=== PATIENT | female | born 1990 | race Caucasian/White ===

== ENCOUNTER 2020-06-19 07:18 | Inpatient (IN) ==
[2020-06-19] MEDS ORDERED: LACTATED RINGER'S 1,000 ML IV SCH (08:30)
[2020-06-19 09:03] LABS: Hematocrit (blood only) 30.2 % (37-47); Hemoglobin 9.7 g/dL (12.0-16.0); Mean Corpuscular Hemoglobin 23.8 pg (25-34); Mean Corpuscular Hgb Conc 32.1 g/dL (32-36); Mean Corpuscular Volume 74.2 fL (80-100); Mean Platelet Volume 11.7 fL (7.4-10.4); Nucleated RBC # (auto) 0.05 K/uL (0-0); Nucleated RBC % (auto) 0.3 %; Platelet Count 177 K/uL (130-400); RDW Coefficient of Variation 15.4 % (11.5-14.5); RDW Standard Deviation 41.9 fL (36.4-46.3); Red Blood Count 4.07 M/uL (4.2-5.4); White Blood Count 15.78 K/uL (4.8-10.8)
[2020-06-19] MEDS ORDERED: CITRIC ACID/SODIUM CITRATE 15 ML UDC ONE (09:23)
--- NOTE | 2020-06-19 09:29 | History & Physical Bridge Note ---
Date of Service June 19, 2020 History & Physical Bridge Note I have examined the patient, reviewed the History & Physical and in the interval since the performance of the History & Physical I have noted the following changes of clinical significance: no changes noted
--- NOTE | 2020-06-19 09:34 | Anesthesiology Consultation ---
Date of Service June 19, 2020 Assessment & Plan (1) Encounter for pre-operative examination: Chart Review Chart Review: Acceptable Risk for Surgery History Surgery Operation Date: 06/19/20 10:00 Proposed Procedures p Section in LD(Bilateral) - Morro Oseguera MD Height/Weight Height: 5 ft 3 in Weight: 102.058 kg Allergies Allergy/AdvReac Type Severity Reaction Status Date / Time BEE STINGS Allergy Severe THROAT Uncoded 06/17/20 02:34 SWELLS, HIVES, HX HOSPITALIZED FOR - HAS EPI PEN Medications Home Medications Medication Instructions Recorded Confirmed Last Taken [id number] fumarate-FA 1 tab PO QAM 05/23/20 06/19/20 06/18/20 [] ferrous sulfate [iron] 325 mg PO QAM 05/23/20 06/19/20 1 Day Ago ~06/18/20 dexamethasone 4 mg PO DAILY 06/16/20 06/19/20 1 Day Ago ~06/18/20 NPO Date Last Intake of Fluids: 06/19/20 Time Last Intake of Fluids: 06:00 Date Last Intake of Solids: 06/18/20 Time Last Intake of Solids: 18:30 Past Medical History Medical History Chronic idiopathic thrombocytopenia Patient finished 4 day treatment with Dexamethasone yesterday d/t Chronic thrombocytopenia History of anesthesia reaction TOOK A LITTLE WHILE TO WAKE UP FROM WISDOM TEETH Right ovarian cyst HX Temporary low platelet count PT REPORTS LOW PLATELETS - HEMATOLOGY VISIT - May - LORETO TELLES/DR CANNON Past Family History Family History Daughter Family history of diabetes mellitus Father Family history of diabetes mellitus Brother Family history of diabetes mellitus Grandfather (Maternal) Family history of diabetes mellitus Grandfather (Paternal) Family history of diabetes mellitus Past Surgical History Surgical History History of section X2 Lutz teeth removed HX Social History Smoking Status: Never smoker Hx Alcohol Use: No Hx Substance Use: No substance use type: does not use Physical Exam Vital Signs Last Vital Signs Temp 36.9 C 06/19/20 09:11 Pulse 64 06/19/20 09:11 Resp 20 06/19/20 09:11 BP 119/63 04/25/21 09:11 Testing Laboratory Results 06/19/20 08:[address] am told by Dr Oseguera that she had a COVID test that was negative yesterday at the OB office but I can't see the results on our system.
[2020-06-19] MEDS ORDERED: MoRPHine SULFATE PF 1 MG/ML 10 ML AMP/VIAL ONE (09:39)
--- NOTE | 2020-06-19 09:49 | Obstetrical Progress Note ---
Date of Service June 19, 2020 Subjective Admit Note 29 F P2012 at 39.2 weeks admitted with onset of contractions this morning and bloody show. Contractions getting stronger since she arrived and coming every 4-5 minutes. She has ITP and just completed a course of steroids. She was originally scheduled for a repeat and bilateral tubal ligation this Sat. and now is in labor. We will proceed with surgery now due to being in labor. Consents signed and patient in agreement with plan to proceed. Results & Data ([facility]) Vital Signs (Past 12 Hours) Vital Signs Temp Pulse Resp BP 06/19/20 09:11 36.9 C 64 20 119/63 06/19/20 07:30 37 C 67 20 118/55 L 06/19/20 07:26 67 118/55 L 06/19/20 07:22 37.0 C 18
[2020-06-19] MEDS ORDERED: ONDANSETRON INJ 2 MG/ML 2 ML VIAL ONE (10:13)
[2020-06-19] MEDS ORDERED: PROPOFOL IV EMULSION 10 MG/ML 20 ML VIAL IV ONE (10:13)
[2020-06-19] MEDS ORDERED: OXYTOCIN 10 UNITS/ML VIAL ONE ×2 (10:13→10:44)
--- NOTE | 2020-06-19 11:24 | Post Operative Brief Note ---
Immediate Post Op Note v1 Date of Surgery June 19, 2020 Pre & Post Diagnosis Operation Date: 06/19/20 10:00 Pre-Op Diagnosis: Repeat Caesarean Section in labor; ITP; Voluntary sterilization Post-Op Diagnosis: Same; delivery of a live baby boy at 1042 ( main OR 3) I identified the patient and participated in the time-out.: Yes Procedure Repeat Section bilateral tubal ligation with Filshie clips Operation Date: 06/19/20 10:00 <No data on this case meets the specified criteria> Surgeon Morro Oseguera MD Agent Based Modeler Dr. Saucedo Estimated Blood Loss 500 Findings Consistent with Post-Op Diagnosis Drains Jameson Catheter
[2020-06-19] MEDS ORDERED: NALOXONE HCL 0.4 MG/1 ML VIAL/CARP IV PRN (11:40)
[2020-06-19] MEDS ORDERED: MoRPHine SULFATE PF 1 MG/ML 10 ML AMP/VIAL INT SPINAL ONE (11:40)
[2020-06-19] MEDS ORDERED: MEPERIDINE HCL 25 MG/ML CARP/VIAL IV PRN (11:40)
[2020-06-19] MEDS ORDERED: ePHEDrine sulfate 50 MG/ML AMP IV PRN (11:40)
[2020-06-19] MEDS ORDERED: NALOXONE HCL 0.08 MG in SYRINGE 1.8 ML IV PRN (11:40)
[2020-06-19] MEDS ORDERED: ONDANSETRON INJ 2 MG/ML 2 ML VIAL IV PRN ×2 (11:40→12:50)
[2020-06-19] MEDS ORDERED: LACTATED RINGER'S 500 ML IV PRN (11:40)
[2020-06-19] MEDS ORDERED: PROMETHAZINE HCL 12.5 MG in SODIUM CHLORIDE 0.9% 50 ML IV PRN (11:40)
[2020-06-19] MEDS ORDERED: diphenhydrAMINE 50 MG/ML VIAL IV PRN (11:40)
[2020-06-19] MEDS ORDERED: NALOXONE HCL 1 MG in SODIUM CHLORIDE 0.9% 1000ML 1,000 ML IV PRN (11:40)
[2020-06-19] MEDS ORDERED: NO NARCOTICS OR SEDATIVES SCH (11:45)
[2020-06-19] MEDS ORDERED: SODIUM CHLORIDE 0.9% 1000ML 1,000 ML IV SCH (11:45)
[2020-06-19] MEDS ORDERED: DC INTRASPINAL MORPHINE SCH (11:45)
--- NOTE | 2020-06-19 12:23 | Anesthesiology Progress Note ---
Date of Service June 19, 2020 Anesthesia Post Procedure Vital Signs Vital Signs: Temp Pulse Resp BP Pulse Ox 06/19/20 12:20 69 100 06/19/20 12:17 68 94 06/19/20 12:15 61 106/56 L 100 06/19/20 12:10 71 93 06/19/20 12:05 66 18 109/58 L 100 06/19/20 12:00 65 100 06/19/20 11:55 62 16 109/62 100 06/19/20 11:50 61 100 06/19/20 11:45 63 20 107/58 L 100 06/19/20 11:40 59 L 100 06/19/20 11:35 36.5 C 63 18 100 06/19/20 11:34 56 L 104/53 L 06/19/20 10:05 80 125/71 06/19/20 09:11 36.9 C 64 20 119/63 06/19/20 07:30 37 C 67 20 118/55 L 06/19/20 07:26 67 118/55 L 06/19/20 07:22 37.0 C 18 Transfer of Care Handoff Completed per policy Notes Mental Status: alert / awake / arousable Patient Amnestic to Procedure: Yes Nausea / Vomiting: adequately controlled Pain: adequately controlled Airway Patency, RR, SpO2: stable & adequate BP & HR: stable & adequate Hydration State: stable & adequate Neuraxial Anesthesia: was administered and sensory block is resolving Anesthetic Complications: no major complications apparent
[2020-06-19] MEDS: KETOROLAC 30 MG/ML VIAL IV PRN (12:26)
[2020-06-19] MEDS ORDERED: MAGNESIUM HYDROXIDE SUSP 30 ML UDC PO PRN (12:50)
[2020-06-19] MEDS ORDERED: BENZOCAINE 20% AER SPR 82.5 GM CAN EXT PRN (12:50)
[2020-06-19] MEDS ORDERED: IBUPROFEN 600 MG TAB PO PRN (12:50)
[2020-06-19] MEDS ORDERED: PROMETHAZINE HCL 25 MG in SODIUM CHLORIDE 0.9% 50 ML IV PRN (12:50)
[2020-06-19] MEDS ORDERED: SENNA 8.6 MG TAB PO PRN (12:50)
[2020-06-19] MEDS ORDERED: HYDROCORTISONE ACETATE 25 MG SUPP PR PRN (12:50)
[2020-06-19] MEDS ORDERED: SUPERCREAM 0.870% 15 GM JAR EXT PRN (12:50)
[2020-06-19] MEDS ORDERED: DIPHTHERIA/TETANUS/PERTUSSIS 0.5 ML SYR/VIAL IM ONE (12:50)
[2020-06-19] MEDS ORDERED: OXYTOCIN 30 UNITS/500ML NSS ONE (13:28)
[2020-06-19] MEDS ORDERED: OXYTOCIN 30 UNITS in LACTATED RINGER'S 1,000 ML IV SCH (13:30)
[2020-06-19] MEDS ORDERED: METHYLERGONOVINE MALEATE 0.2 MG/ML AMP ONE (13:35)
[2020-06-19] MEDS ORDERED: METHYLERGONOVINE MALEATE 0.2 MG/ML AMP IM STA (13:55)
[2020-06-19] MEDS ORDERED: CARBOPROST TROMETHAMINE 250 MCG/ML AMPUL IM ONE (13:59)
[2020-06-19] MEDS ORDERED: SODIUM CHLORIDE 0.9% 250 ML IV PRN (14:06)
[2020-06-19 14:36] LABS: Hematocrit (blood only) 26.8 % (37-47); Hemoglobin 8.7 g/dL (12.0-16.0); Mean Platelet Volume 12.1 fL (7.4-10.4); Platelet Count 187 K/uL (130-400); RDW Coefficient of Variation 15.4 % (11.5-14.5); RDW Standard Deviation 41.8 fL (36.4-46.3); Red Blood Count 3.62 M/uL (4.2-5.4); White Blood Count 21.39 K/uL (4.8-10.8)
[2020-06-19 14:41] LABS: Mean Corpuscular Hgb Conc 32.5 g/dL (32-36)
[2020-06-19] MEDS: LACTATED RINGER'S 1,000 ML IV SCH (14:58)
--- NOTE | 2020-06-19 15:44 | Operative Report (OR) ---
DATE OF OPERATION: 06/19/2020 PREOPERATIVE DIAGNOSES: Term elective repeat section, voluntary sterilization procedure and idiopathic thrombocytopenic purpura. POSTOPERATIVE DIAGNOSES: Term elective repeat section, voluntary sterilization procedure and idiopathic thrombocytopenic purpura. PROCEDURE: Repeat section, low segment transverse and bilateral tubal ligation with Filshie clips. SURGEON: Morro Oseguera MD. LOAD OUT PERSON: Dr. Saucedo. ANESTHESIA: Spinal. COMPLICATIONS: None. FINDINGS: A live male, Apgars 9 and 9, weight pending. TOTAL FLUIDS: 2400 mL. TOTAL BLOOD LOSS: 500 mL. TOTAL URINE OUTPUT: 100 mL. CLINICAL HISTORY: The patient is a 29-year-old female, para 2-0-1-2, at 39 weeks and 2 days, who was admitted due to having contractions starting this morning with a bloody show. She was paul every 4-5 minutes. The patient has ITP, had just completed a course of steroids for her low platelet count, was due to have IV immunoglobulin started tomorrow. The patient was in labor, so decision was made to proceed with a . A timeout was called prior to the start of the procedure and Ancef 3 grams were given preop. DESCRIPTION OF PROCEDURE: Under satisfactory spinal anesthesia, the patient was prepped and draped in usual sterile fashion. A low Pfannenstiel incision through a prior scar was then made entering into the abdominal cavity in successive layers without difficulty. Upon entering into the peritoneal cavity, pickups with teeth and Metzenbaums were used to create a bladder flap. This was gently dissected down. A low segment transverse incision over the lower uterine segment was made. The incision was widened in the AP diameter and the amniotic sac was nicked and found to have light meconium. The was then delivered from the vertex presentation. The lie was occiput transverse. Delivery was accomplished with the aid of fundal pressure. The cord was doubly clamped and cut. Baby was handed to the forest manager present for delivery. Apgars were 9 and 9, weight pending. Cord blood was then obtained. Placenta delivered spontaneously and intact. The uterus was then exteriorized. Ring forceps were then used to clamp both the margins anteriorly and the lower uterine segment. Another ring was used to dilate the cervix. Uterus was firm and was cleaned with a dry lap of all clots and debris. Uterus, tubes, ovaries were within normal limits without any evidence of pathology. Uterus was closed with a double layer closure with 0 Vicryl suture in a continuous interlocking fashion followed by another imbricating layer. The initial sponge, needle, and instrument count were found to be correct. The lower uterine segment was inspected and no active bleeding was noted. Both tubes were identified and they were serially grasped with Filshie clips and 2 were applied to each tube. The uterus was then placed back into the normal anatomical position. The lower uterine segment was inspected, no active bleeding. The contents of the pelvic and abdominal cavity were then irrigated to clear. fascia was then reapproximated from both ends using 0 Vicryl suture in a continuous fashion. Subcuticular space was then irrigated. The subcuticular layer was then closed with 3-0 plain suture. The skin was then reapproximated with 4-0 Monocryl suture and then the incision site was then closed with quarter-inch Steri-Strips, Telfa and sponge dressing were then applied. The uterus was firm. No active bleeding. Estimated blood loss 500 mL. The patient was then placed supine on a stretcher and taken to recovery room in stable condition. I attest to the content of the Intraoperative Record and any orders documented therein. Any exception s are noted below.
[2020-06-19] MEDS: SIMETHICONE 80 MG CHEW PO SCH ×3 (17:14→20:55)
[2020-06-19] MEDS: DOCUSATE SODIUM 100 MG CAP PO SCH (20:54)
[2020-06-20] MEDS: LACTATED RINGER'S 1,000 ML IV SCH (02:26)
[2020-06-20] MEDS: KETOROLAC 30 MG/ML VIAL IV PRN (03:41)
[2020-06-20] MEDS ORDERED: diphenhydrAMINE Capsule 25 MG CAP PO PRN (05:40)
[2020-06-20] MEDS ORDERED: oxyCODONE/ACETAMINOPHEN 5mg/325mg TAB PO PRN (05:40)
[2020-06-20] MEDS ORDERED: MEPERIDINE HCL 50 MG/ML CARP IV PRN (05:40)
[2020-06-20] MEDS ORDERED: KETOROLAC 30 MG/ML VIAL IV PRN (05:40)
[2020-06-20] MEDS ORDERED: diphenhydrAMINE 50 MG/ML VIAL IV PRN (05:40)
[2020-06-20] MEDS ORDERED: CITRIC ACID/SODIUM CITRATE 15 ML UDC PO SCH (06:00)
[2020-06-20 06:41] LABS: Basophils # (auto) 0.02 K/uL (0-0.2); Basophils % (auto) 0.1 %; Eosinophils % (auto) 0.7 %; Hematocrit (blood only) 25.8 % (37-47); Hemoglobin 8.3 g/dL (12.0-16.0); Immature Granulocytes # (auto) 0.25 K/uL (0.00-0.02); Immature Granulocytes % (auto) 1.7 %; Lymphocytes # (auto) 1.96 K/uL (1.2-3.4); Lymphocytes % (auto) 13.1 %; Mean Corpuscular Hemoglobin 24.3 pg (25-34); Mean Corpuscular Hgb Conc 32.2 g/dL (32-36); Mean Corpuscular Volume 75.4 fL (80-100); Mean Platelet Volume 11.8 fL (7.4-10.4); Monocytes # (auto) 1.43 K/uL (0.11-0.59); Monocytes % (auto) 9.6 %; Neutrophils # (auto) 11.17 K/uL (1.4-6.5); Neutrophils % (auto) 74.8 %; Nucleated RBC # (auto) 0.03 K/uL (0-0); Nucleated RBC % (auto) 0.2 %; Platelet Count 214 K/uL (130-400); RDW Coefficient of Variation 15.7 % (11.5-14.5); RDW Standard Deviation 43.3 fL (36.4-46.3); Red Blood Count 3.42 M/uL (4.2-5.4); White Blood Count 14.93 K/uL (4.8-10.8)
[2020-06-20] MEDS ORDERED: FERROUS SULFATE 325 MG TAB PO SCH (08:00)
--- NOTE | 2020-06-20 08:49 | Obstetrical Progress Note ---
Date of Service June 20, 2020 Assessment & Plan Admission and Anticipated Discharge Date Admission Date: June 19, 2020 Subjective Patient is seen and examined. She feels well, no complaints. Pain is under control with oral meds. Ambulating without dizziness Voiding without difficulty Tolerating regular diet with out N&V Flatus + BM neg Bleeding is minimal No fever/ chills/ CP/ SOB/ N&V/ Leg pain Breast feeding without problems Vital Signs Temp Pulse Resp BP Pulse Ox 06/20/20 05:30 16 97 06/20/20 04:30 16 98 06/20/20 03:35 36.5 C 73 16 101/64 99 06/20/20 02:15 16 97 06/20/20 01:30 16 96 06/20/20 00:10 16 100 06/19/20 23:35 36.7 C 62 16 101/64 99 06/19/20 22:10 16 98 06/19/20 21:10 16 98 Lab Results 06/19/20 06/19/20 06/19/20 Range/Units 08:51 08:51 14:26 WBC 15.78 H 21.39 H (4.8-10.8) K/uL RBC 4.07 L 3.62 L (4.2-5.4) M/uL Hgb 9.7 L 8.7 L (12.0-16.0) g/dL Hct 30.2 L 26.8 L (37-47) % MCV 74.2 L 74.0 L (80-100) fL MCH 23.8 L 24.0 L (25-34) pg MCHC 32.1 32.5 (32-36) g/dL RDW Std Deviation 41.9 41.8 (36.4-46.3) fL RDW Coeff of Sunil 15.4 H 15.4 H (11.5-14.5) % Plt Count 177 187 (130-400) K/uL MPV 11.7 H 12.1 H (7.4-10.4) fL Immature Gran % (Auto) % Neut % (Auto) % Lymph % (Auto) % Lyman % (Auto) % Eos % (Auto) % Baso % (Auto) % Neut # (Auto) (1.4-6.5) K/uL Lymph # (Auto) (1.2-3.4) K/uL Lyman # (Auto) (0.11-0.59) K/uL Eos # (Auto) (0-0.5) K/uL Baso # (Auto) (0-0.2) K/uL Immature Gran # (Auto) (0.00-0.02) K/uL Absolute Nucleated RBC 0.05 H (0-0) K/uL Nucleated RBC % (auto) 0.3 % Blood Type O Positive Blood Type Recheck Antibody Screen NEGATIVE Crossmatch See Detail 06/19/20 06/20/20 Range/Units 14:26 06:21 WBC 14.93 H (4.8-10.8) K/uL RBC 3.42 L (4.2-5.4) M/uL Hgb 8.3 L (12.0-16.0) g/dL Hct 25.8 L (37-47) % MCV 75.4 L (80-100) fL MCH 24.3 L (25-34) pg MCHC 32.2 (32-36) g/dL RDW Std Deviation 43.3 (36.4-46.3) fL RDW Coeff of Sunil 15.7 H (11.5-14.5) % Plt Count 214 (130-400) K/uL MPV 11.8 H (7.4-10.4) fL Immature Gran % (Auto) 1.7 % Neut % (Auto) 74.8 % Lymph % (Auto) 13.1 % Lyman % (Auto) 9.6 % Eos % (Auto) 0.7 % Baso % (Auto) 0.1 % Neut # (Auto) 11.17 H (1.4-6.5) K/uL Lymph # (Auto) 1.96 (1.2-3.4) K/uL Lyman # (Auto) 1.43 H (0.11-0.59) K/uL Eos # (Auto) 0.10 (0-0.5) K/uL Baso # (Auto) 0.02 (0-0.2) K/uL Immature Gran # (Auto) 0.25 H (0.00-0.02) K/uL Absolute Nucleated RBC 0.03 H (0-0) K/uL Nucleated RBC % (auto) 0.2 % Blood Type Blood Type Recheck O Positive Antibody Screen Crossmatch PE: General: Alert, orientedx3, NAD CVS: S1S2 RRR Lungs; CTAB Abd: soft, NT, ND, BS+, fundus firm, below Umbilicus Incision/ dressing: Clean, dry, intact Perineum intact, Lochia rubra minimal Ext; NT, no edema AP: 29 yo s/p C Section, pod# 1 VSS Afebrile doing well Continue routine postop care Encourage ambulation, PO intake All questions were answered D/C home tomorrow Results & Data ([facility]) Vital Signs (Past 12 Hours) Vital Signs Temp Pulse Resp BP Pulse Ox 06/20/20 05:30 16 97 06/20/20 04:30 16 98 06/20/20 03:35 36.5 C 73 16 101/64 99 06/20/20 02:15 16 97 06/20/20 01:30 16 96 06/20/20 00:10 16 100 06/19/20 23:35 36.7 C 62 16 101/64 99 06/19/20 22:10 16 98 06/19/20 21:10 16 98
[2020-06-20] MEDS ORDERED: NON-FORMULARY MEDICATION (Pnv133-Ferrous Fumarate-Fa [Prenatal] 28-800 mg-mcg Tablet) PO SCH (09:00)
[2020-06-20] MEDS ORDERED: dexAMETHasone 4 MG TAB PO SCH (09:00)
[2020-06-20] MEDS ORDERED: NON-FORMULARY MEDICATION (Ferrous Sulfate [Iron] 325 mg (65 mg iron) Tablet) PO SCH (09:00)
[2020-06-20] MEDS: FERROUS SULFATE 325 MG TAB PO SCH ×2 (09:32→21:22)
[2020-06-20] MEDS: SIMETHICONE 80 MG CHEW PO SCH ×4 (09:32→21:22)
[2020-06-20] MEDS: PRENATAL VITAMIN 1 TAB PO SCH (09:32)
[2020-06-20] MEDS: IBUPROFEN 600 MG TAB PO PRN ×3 (09:32→21:23)
[2020-06-20] MEDS: DOCUSATE SODIUM 100 MG CAP PO SCH ×2 (09:32→21:22)
[2020-06-20] MEDS ORDERED: ACETAMINOPHEN 325 MG TAB PO PRN (14:03)
[2020-06-20] MEDS ORDERED: bisacodyL 5 MG TABEC PO SCH (20:00)
[2020-06-21] MEDS: IBUPROFEN 600 MG TAB PO PRN (04:41)
[2020-06-21 06:56] LABS: Hematocrit (blood only) 23.4 % (37-47); Hemoglobin 7.7 g/dL (12.0-16.0)
--- NOTE | 2020-06-21 07:36 | Obstetrical Progress Note ---
Date of Service June 21, 2020 Assessment & Plan Admission and Anticipated Discharge Date Admission Date: June 19, 2020 Subjective Patient is seen and examined. She feels well, no complaints. Desires d/c Pain is under control with oral meds. Ambulating without dizziness or lightheadedness Voiding without difficulty Tolerating regular diet with out N&V Flatus + BM neg Bleeding is minimal No fever/ chills/ CP/ SOB/ palpitation/ N&V/ Leg pain Breast feeding without problems Vital Signs Temp Pulse Pulse Resp BP BP Pulse Ox 06/21/20 00:05 36.7 C 78 18 110/72 97 06/20/20 20:30 37.0 C 89 20 103/62 98 06/20/20 15:30 36.7 C 89 18 90/57 L 98 06/20/20 09:00 37 C 76 18 91/57 L 100 Lab Results 06/19/20 06/19/20 06/19/20 Range/Units 08:51 08:51 14:26 WBC 15.78 H 21.39 H (4.8-10.8) K/uL RBC 4.07 L 3.62 L (4.2-5.4) M/uL Hgb 9.7 L 8.7 L (12.0-16.0) g/dL Hct 30.2 L 26.8 L (37-47) % MCV 74.2 L 74.0 L (80-100) fL MCH 23.8 L 24.0 L (25-34) pg MCHC 32.1 32.5 (32-36) g/dL RDW Std Deviation 41.9 41.8 (36.4-46.3) fL RDW Coeff of Sunil 15.4 H 15.4 H (11.5-14.5) % Plt Count 177 187 (130-400) K/uL MPV 11.7 H 12.1 H (7.4-10.4) fL Immature Gran % (Auto) % Neut % (Auto) % Lymph % (Auto) % Ocean % (Auto) % Eos % (Auto) % Baso % (Auto) % Neut # (Auto) (1.4-6.5) K/uL Lymph # (Auto) (1.2-3.4) K/uL Ocean # (Auto) (0.11-0.59) K/uL Eos # (Auto) (0-0.5) K/uL Baso # (Auto) (0-0.2) K/uL Immature Gran # (Auto) (0.00-0.02) K/uL Absolute Nucleated RBC 0.05 H (0-0) K/uL Nucleated RBC % (auto) 0.3 % Blood Type O Positive Blood Type Recheck Antibody Screen NEGATIVE Crossmatch See Detail 06/19/20 06/20/20 06/21/20 Range/Units 14:26 06:21 06:46 WBC 14.93 H (4.8-10.8) K/uL RBC 3.42 L (4.2-5.4) M/uL Hgb 8.3 L 7.7 L (12.0-16.0) g/dL Hct 25.8 L 23.4 L (37-47) % MCV 75.4 L (80-100) fL MCH 24.3 L (25-34) pg MCHC 32.2 (32-36) g/dL RDW Std Deviation 43.3 (36.4-46.3) fL RDW Coeff of Sunil 15.7 H (11.5-14.5) % Plt Count 214 (130-400) K/uL MPV 11.8 H (7.4-10.4) fL Immature Gran % (Auto) 1.7 % Neut % (Auto) 74.8 % Lymph % (Auto) 13.1 % Ocean % (Auto) 9.6 % Eos % (Auto) 0.7 % Baso % (Auto) 0.1 % Neut # (Auto) 11.17 H (1.4-6.5) K/uL Lymph # (Auto) 1.96 (1.2-3.4) K/uL Ocean # (Auto) 1.43 H (0.11-0.59) K/uL Eos # (Auto) 0.10 (0-0.5) K/uL Baso # (Auto) 0.02 (0-0.2) K/uL Immature Gran # (Auto) 0.25 H (0.00-0.02) K/uL Absolute Nucleated RBC 0.03 H (0-0) K/uL Nucleated RBC % (auto) 0.2 % Blood Type Blood Type Recheck O Positive Antibody Screen Crossmatch PE: General: Alert, orientedx3, NAD CVS: S1S2 RRR Lungs; CTAB Abd: soft, NT, ND, BS+, fundus firm, below Umbilicus Incision: Clean, dry, intact Perineum intact, Lochia rubra minimal Ext; NT, no edema AP: 29 yo s/p C Section, pod# 2 VSS Afebrile doing well Anemic asymptomatic Continue routine postop care Encourage ambulation, PO intake All questions were answered D/C home with iron Results & Data ([facility]) Vital Signs (Past 12 Hours) Vital Signs Temp Pulse Pulse Resp BP BP Pulse Ox 06/21/20 00:05 36.7 C 78 18 110/72 97 06/20/20 20:30 37.0 C 89 20 103/62 98
[2020-06-21] MEDS: FERROUS SULFATE 325 MG TAB PO SCH (08:38)
[2020-06-21] MEDS: DOCUSATE SODIUM 100 MG CAP PO SCH (08:38)
[2020-06-21] MEDS: PRENATAL VITAMIN 1 TAB PO SCH (08:39)
[2020-06-21] MEDS: SIMETHICONE 80 MG CHEW PO SCH (08:39)
[2020-06-21] MEDS ORDERED: bisacodyL 10 MG SUPP PR PRN (11:35)
--- NOTE | 2020-06-28 07:59 | Discharge Summary (DS) ---
REASON FOR ADMISSION AND HOSPITAL COURSE: The patient is a 29-year-old female, para 2-0-1-2, at 39 weeks and 2 days, was admitted after having contractions and bloody show this morning. The patient has a history of ITP. She received steroids prior to coming into the hospital for several days. Her platelet count was normal, so we proceeded with a section. Under regional anesthesia, a repeat was done, delivering a live baby with Apgars of 9 and 9. Hospital course was uncomplicated. The patient also had a request for voluntary sterilization and this was done with Filshie clips. No complications were noted. The patient subsequently was discharged home. Homegoing instructions were given. Condition on discharge is stable. Regular diet on discharge. Percocet and Motrin for pain. Followup will be in 1 week for an incision check.
--- NOTE | 2020-07-01 10:25 | Coding Query ---
CODING QUERY To promote full compliance with coding requirements relating to patient care, provider participation is requested in all cases of cpc coder uncertainty. Please assist us with the question(s) below: Coding Question(s): Idiopathic thrombocytopenic purpura is documented in the record with documentation of completed treatment with dexamethasone prior to admission. Please specify below, in your clinical opinion, regarding Idiopathic thrombocytopenic purpura, to determine if it was treated and/or monitored during the admission. ( x ) Idiopathic Thrombocytopenic Purpura was treated and or monitored during this admission with monitoring of bloodwork ( ) Idiopathic Thrombocytopenic Purpura was treated and or monitored during this admission with Other: Please Specify ( ) Idiopathic Thrombocytopenic Purpura was not treated and or monitored during this admission ( ) Other: Please Specify Physician's Response(s): Thank you Ally Lennon Principal Diagnosis: "that condition established after study, to be chiefly responsible for occasioning the admission of the patient to the hospital for care." Co-Existing Principal Diagnosis: "when two or more diagnoses equally meet the criteria for principal diagnosis as determined by the circumstances of admission, diagnostic work up, and/or therapy provided, and the Alphabetic Index, Tabular List, or another coding guideline does not provide sequencing direction, any one of the diagnoses may be sequenced first." "When the physician has documented what appears to be a current diagnosis in the body of the record, but has not included the diagnosis in the final diagnostic statement, the physician should be asked whether the diagnosis should be added." ([facility] 2 QTR90. p3-4) SAIMA
== END 2020-06-21 10:40 | disposition home or self-care (01) | DRG 784 ==
LOC: OPB 07:18 → 4S1 07:21 → 4S2 13:29 → 4S1 13:56 → 4S2 14:19